=== PATIENT | male | born 1970 | race African-American/Black ===

== ENCOUNTER 2016-08-30 08:13 | Emergency (ER) | payer OTHER ==
[~2016-08-30] VITALS: Ht 170.2 cm; Wt 65.8 kg
[2016-08-30 09:59] LABS: POTASSIUM 4.5 mmol/L (3.6-5.2); SODIUM 137 mmol/L (136-145)
== END 2016-08-30 10:29 | disposition home or self-care (01) ==
LOC: ED 08:13
DX: R51 Headache (principal)
CPT/HCPCS: 36415; 80053; 80061; 99283

== ENCOUNTER 2017-07-08 18:37 | Emergency (ER) | payer OTHER ==
[~2017-07-08] VITALS: Ht 170.2 cm; Wt 72.1 kg
[2017-07-08 19:44] LABS: PLATELET COUNT 229 K/uL (142-355)
== END 2017-07-08 20:04 | disposition home or self-care (01) ==
LOC: ED 18:37
DX: K40.90 Unilateral inguinal hernia, without obstruction or gangrene, not specified as recurrent (principal)
CPT/HCPCS: 36415; 81000; 85027; 99283

== ENCOUNTER 2017-07-20 19:21 | Emergency (ER) | payer OTHER ==
[~2017-07-20] VITALS: Ht 170.2 cm; Wt 65.8 kg
== END 2017-07-20 21:20 | disposition home or self-care (01) ==
LOC: ED 19:21
DX: B37.89 Other sites of candidiasis (principal)
CPT/HCPCS: 99281